=== PATIENT | female | born 1970 | race Caucasian/White ===

== ENCOUNTER 2021-06-22 07:17 | Outpatient (REF) | payer BC, SELFPAY ==
[2021-06-22 12:10] LABS: Appearance Urine CLEAR; Color Urine STRAW; Glucose Urine UA NEG (NEG); Leukocyte Esterase Urine NEG (NEG); Nitrite Urine NEG (NEG); Specific Gravity - Urine <= 1.005 (1.005-1.025); Urine Blood NEG (NEG); Urine Ketones NEG (NEG); Urine Protein NEG (NEG-TRACE)
[2021-06-22 12:22] LABS: MANUAL DIFF FLAG NO
[2021-06-22 12:36] LABS: Basophils Absolute Auto 0.1 X10*3/uL (0.0-0.2); Basophils Percent Auto 0.6 % (0-2); Eosinophils Absolute Auto 0.1 X10*3/uL (0.0-0.4); Eosinophils Percent Auto 1.2 % (0-4); Hematocrit 40.5 % (37-47); Hemoglobin 13.6 g/dl (12.0-16.0); Imm Gran Abs Auto 0.02 X10*3/uL (0.00-0.03); Imm Gran Pct Auto 0.2 % (0.0-0.4); Lymphocytes Absolute Auto 1.2 X10*3/uL (1.2-4.9); Lymphocytes Percent Auto 14.4 % (20-40); Mean Corpuscular HGB Conc 33.6 g/dl (31.0-35.0); Mean Corpuscular Hemoglobin 30.5 pg (27.0-33.0); Mean Corpuscular Volume 90.8 fL (80-98); Mean Platelet Volume 12.1 fL (9.4-12.3); Monocytes Absolute Auto 0.5 X10*3/uL (0.1-1.2); Monocytes Percent Auto 6.5 % (2-11); Neutrophils Absolute Auto 6.3 X10*3/uL (2.0-8.3); Neutrophils Percent Auto 77.1 % (45-73); Platelet Count 226 X10*3/uL (160-400); Red Blood Count 4.46 X10*6/uL (4.20-5.50); Red Cell Distribution Width 12.3 % (11.0-16.0); White Blood Count 8.1 X10*3/uL (4.8-10.8)
[2021-06-22 13:14] LABS: Alanine Aminotransferase 19 U/L (0-31); Albumin Level 4.5 g/dL (3.5-5.0); Alkaline Phosphatase 53 U/L (39-117); Anion Gap 13 (12-20); Aspartate Amino Transferase 16 U/L (5-31); Bilirubin Total 1.3 mg/dL (0.0-1.0); Blood Urea Nitrogen 13 mg/dL (9-16); Calcium 9.3 mg/dL (8.4-10.2); Carbon Dioxide 22 mmol/L (22-29); Chloride 104 mmol/L (96-108); Estimated Glomerular Filt Rate > 60; Glucose Random 104 mg/dL (60-115); Potassium 4.2 mmol/L (3.3-5.1); Sodium 135 mmol/L (135-145); Total Protein 6.9 g/dL (6.5-8.0)
[2021-06-22 13:46] LABS: CT PCR NOT DETECTED (Not Detect.); NG PCR NOT DETECTED (Not Detect.)
== END 2021-06-22 07:18 | disposition home or self-care (01) ==
LOC: HO.HMGCLDS 07:17
PROVIDERS: Visit Provider Family Medicine
DX: N93.8 Other specified abnormal uterine and vaginal bleeding (principal); Z79.899 Other long term (current) drug therapy
CPT/HCPCS: 80053; 81003; 85025; 87086; 87491; 87591

== ENCOUNTER 2022-05-06 06:59 | Outpatient (REF) | payer BC, SELFPAY ==
[2022-05-06 11:46] LABS: Basophils Absolute Auto 0.1 X10*3/uL (0.0-0.2); Basophils Percent Auto 1.2 % (0-2); Eosinophils Absolute Auto 1.2 X10*3/uL (0.0-0.4); Eosinophils Percent Auto 18.3 % (0-4); Hematocrit 36.5 % (37.0-47.0); Hemoglobin 12.3 g/dl (12.0-16.0); Imm Gran Abs Auto 0.01 X10*3/uL (0.00-0.03); Imm Gran Pct Auto 0.2 % (0.0-0.4); Lymphocytes Absolute Auto 1.1 X10*3/uL (1.2-4.9); Lymphocytes Percent Auto 17.8 % (20-40); Mean Corpuscular HGB Conc 33.7 g/dl (31.0-35.0); Mean Corpuscular Hemoglobin 30.5 pg (27.0-33.0); Mean Corpuscular Volume 90.6 fL (80.0-98.0); Mean Platelet Volume 11.2 fL (9.4-12.3); Monocytes Absolute Auto 0.5 X10*3/uL (0.1-1.2); Neutrophils Absolute Auto 3.6 x10*3/uL (2.0-8.3); Neutrophils Percent Auto 55.5 % (45-73); Platelet Count 205 X10*3/uL (160-400); Red Blood Count 4.03 X10*6/uL (4.20-5.50); Red Cell Distribution Width 12.5 % (11.0-16.0); White Blood Count 6.4 X10*3/uL (4.8-10.8)
[2022-05-06 11:52] LABS: MANUAL DIFF FLAG NO
[2022-05-06 12:13] LABS: Appearance Urine CLEAR; Color Urine STRAW; Glucose Urine UA NEG (NEG); Leukocyte Esterase Urine NEG (NEG); Nitrite Urine NEG (NEG); Specific Gravity - Urine <= 1.005 (1.005-1.025); Urine Blood NEG (NEG); Urine Ketones NEG (NEG); Urine Protein NEG (NEG-TRACE)
[2022-05-06 12:23] LABS: Alanine Aminotransferase 20 U/L (0-31); Albumin Level 4.5 g/dL (3.5-5.0); Alkaline Phosphatase 49 U/L (39-117); Anion Gap 14 (12-20); Aspartate Amino Transferase 19 U/L (5-31); Bilirubin Total 0.9 mg/dL (0.0-1.0); Blood Urea Nitrogen 9 mg/dL (9-16); Calcium 9.1 mg/dL (8.4-10.2); Carbon Dioxide 27 mmol/L (22-29); Chloride 102 mmol/L (96-108); Cholesterol 187 mg/dL; Estimated Glomerular Filt Rate > 60; Glucose Fasting 106 mg/dL (60-99); HDL Cholesterol 54 mg/dL; LDL Cholesterol Calculated 119 mg/dl; Potassium 3.9 mmol/L (3.3-5.1); Sodium 139 mmol/L (135-145); Total Protein 6.8 g/dL (6.5-8.0); Triglycerides 74 mg/dL
[2022-05-06 12:43] LABS: TSH reflex Free T4 0.84 uIU/mL (0.32-4.0)
[2022-05-08 04:51] LABS: DHEA Sulfate 141 mcg/dL (5-167); Follicle Stimulating Hormone 38.6 mIU/mL; Lutenizing Hormone 46.6 mIU/mL
[2022-05-09 21:21] LABS: Pregnenolone, LC/MS 123 ng/dL (22-237)
[2022-05-12 02:46] LABS: Dihydrotestosterone 13 ng/dL (< OR = 20)
[2022-05-14 19:31] LABS: Testosterone, Free 1.9 pg/mL (0.1-6.4); Testosterone, Total 28 ng/dL (2-45)
[2022-05-14 22:21] LABS: Estradiol Free 2.25 pg/mL; Estradiol, Ultrasensitive 156 pg/mL
[2022-05-16 18:31] LABS: Progesterone 1.1 ng/mL
== END 2022-05-06 07:00 | disposition home or self-care (01) ==
LOC: HO.HMGCLDS 06:59
PROVIDERS: Absent Provider Nurse Practitioner Family; PCP Nurse Practitioner Family; Visit Provider Nurse Practitioner Family
DX: Z00.00 Encounter for general adult medical examination without abnormal findings (principal); N95.8 Other specified menopausal and perimenopausal disorders
CPT/HCPCS: 36415; 80053; 80061; 81003; 82627; 82642; 82670; 82681; 83001; 83002; 84143; 84144; 84402; 84403; 84443; 85025

== ENCOUNTER → 2023-03-20 13:55 | Outpatient (REF) | payer OTHER, SELFPAY ==
--- NOTE | 2023-03-20 13:58 | CA_ITS ---
Transthoracic Echocardiogram Patient (Last, First, Middle): Veronica Tello, Gender: Female Date of : 1970 Age: 52 Procedure Date: 03/20/2023 Procedure Type: Transthoracic Echocardiogram Location: OP Height: 165.1 cm Weight: 70.31 kg BSA: 1.78 m2 Heart Rate: 83 bpm BP: 160 / 80 mmHg [employer]: NICO Chen MD: Terry Hargrove [facility] Sustainable Products Marketing Manager: Pollo Farrar MD Symptoms: R01.1 - Cardiac murmur, unspecified Study Quality: Good ECG Rhythm: Sinus Conclusions: - 1. Normal LV systolic function with LVEF of greater than 70% with normal filling pattern 2. Normal cardiac valvular Dopplers 3. Normal RV systolic pressure 4. No gross pericardial effusion Findings Left Ventricle Normal left ventricular size, thickness, and systolic function. The visually estimated ejection fraction is >70%. Spectral Doppler is indicative of a normal filling pattern. Peak GLS is -17.3%, which is borderline low. Right Ventricle Normal right ventricular cavity size and systolic function. Atria Both atria are normal in size. Interatrial shunt cannot be excluded. Aortic Valve The aortic valve structure and function is likely normal. There is no aortic valve stenosis. There is no aortic valve regurgitation. Mitral Valve Likely normal mitral valve structure and function. There is trace mitral valve regurgitation. There is no mitral valve stenosis. Pulmonic Valve The pulmonic valve was not well visualized. Tricuspid Valve Likely normal tricuspid valve structure and function. There is trace tricuspid valve regurgitation. The right ventricular systolic pressure is normal. The right ventricular systolic pressure is 16 mmHg. Normal right atrial pressure. There is no evidence of pulmonary hypertension. Great Vessels All visible segments of the aorta are normal in size. The pulmonary artery was not well visualized. Venous The inferior vena cava is normal in size and collapses greater than 50% with inspiration. Pericardium/Pleural There is no evidence of pericardial effusion. Prior Study Comparison No prior study available for comparison. Measurements 2D Linear Measurements IVSd: 0.98 0.6-0.9/0.6-1.0 cm LVIDd: 4.04 3.9-5.3/4.2-5.9 cm LVIDd Index: 2.27 2.4-3.2/2.2-3.1 cm/m2 LVIDs: 2.20 2.0-3.6 cm LVPWd: 0.86 0.7-1.1 cm LA Diam: 3.20 2.7-3.8/3.0-4.0 cm LAIDs Index: 1.80 1.5-2.3 cm/m2 LV Mass: 141.88 67-162/88-224 g LV Mass Index: 79.71 43-95/49-115 g/m2 LVOT Diam: 1.80 3.0+(-)1.3 cm 2D Systolic Function EF 4C: 73.50 >55% EF 2C: 71.80 >55% EF BiP: 72.50 >55% Mitral Valve MV Pk E: 0.89 MV PK A: 0.78 MV Decel Time: 209.00 E/A: 1.10 E'Lateral: 11.30 E'Medial: 7.62 E/E' Med: 11.70 E/E' Lat: 7.90 PHT: 61.00 MVA PHT: 3.61 Decel [place]: 4.26 Aortic Valve AoV Pk Estrada: 1.63 AoV Mn Estrada: 1.19 AoV VTI: 0.35 AoV Pk Grad: 11.00 Aov Mn Grad: 6.00 FIDENCIO Cont.VTI: 1.61 LVOT LVOT Pk Estrada: 1.06 LVOT Mn Estrada: 0.75 LVOT VTI: 0.23 LVOT Pk Grad: 4.00 LVOT Mn Grad: 2.00 LVOT Diam: 1.80 LVOT Area: 2.54 Diastolic Function MV Pk E: 0.89 MV Pk A: 0.78 E/A: 1.10 E'Medial: 7.62 E/E' Med: 11.70 E' Laterial: 11.30 E/E' Lat: 7.90 Right Ventricle TAPSE (mm): 24.00 TVS' Estrada: 16.30 Tricuspid Valve TR Pk Estrada: 1.82 TR Pk Grad: 13.00 RA Press: 3.00 RVSP: 16.00 Great Vessels Aorta Sinus of Valsalva: 3.10 2.0-3.5 cm Ao Asc: 2.70 2.1-3.4 cm Pulmonary Valve PV Pk Estrada: 1.02 Peak PV Grad: 4.00 Updated in Other Vendor System with Status of Final Pollo Farrar MD electronically signed on 03/20/2023 3:42:43 PM with status of Final
== END ==
LOC: HO.CARD 13:55
PROVIDERS: PCP Nurse Practitioner Family; Visit Provider Nurse Practitioner Family
DX: R01.1 Cardiac murmur, unspecified (principal)
CPT/HCPCS: 93306; 93356

== ENCOUNTER 2024-03-09 08:05 | Outpatient (AMB) | payer OTHER, SELFPAY ==
--- NOTE | 2024-03-09 08:11 | A.OFFPC_ITS ---
Vital Signs 03/09/24 08:15 Height 5 ft 5 in Weight 160 lb BMI 26.6 BP 138/86 Blood Pressure Location Lt brachial Position Sitting Pulse 99 Pulse Source Pulse Oximeter Pulse Oximetry (%) 99 Oxygen Delivery Method Room Air Intake Visit Reasons: PE Intake Note: pt is here for annual PE. Colonoscopy done in 2019. Mammogram 07/2023 at [facility].. Bone density not done Allergies No Known Allergies Allergy (Verified 03/09/24 08:32) Medication List - Last Reconciled 03/09/24 by ROQUE Mcrae No Known Home Meds Tobacco use date assessed: 03/09/24 Dental Screening Dental Screen Date: 03/09/24 Did you have a dental visit in the last 12 months?: Yes Did you have a dental problem in the last 6 months where you did not have access to dental care?: No Was dental information given to patient?: Patient has dentist HPI HPI Comments History of Present Illness Details This is a 53-year-old female who I am meeting for the 1st time in for physical exam. She is up-to-date with Tdap Patient is due for mammogram in 3 months. [facility], will make appointment. Patient has [employer], she is up-to-date with Pap smears. Patient is up-to-date with colonoscopy-goes through [facility]. Next colonoscopy in 5 months. Patient gets colonoscopies every 5 years due to family history. She has a past medical history significant for: Basal cell carcinoma-has establish care with [facility] most recent appointment 1 month prior to this. Psoriasis of left foot-controlled, sees [facility] for [facility]. Anemia-history of anemia due to heavy menstrual cycles. Patient has OBGYN is seeing them in 3 months. [facility] Medical History (Updated 03/09/24 @ 08:48 by ROQUE Mcrae) Basal cell carcinoma Surgical History No pertinent past surgical history Social History Housing: House Patient Tobacco Use Status: Never used Tobacco e-Cigarette/Vaping Use: Never Used service: No Current occupational status: employed Cognitive needs: No Hearing needs: No Vision needs: Yes Questionnaire PHQ-9 Over the last 2 weeks, how often have you been bothered by any of the following problems? 1. Little interest or pleasure in doing things: not at all 2. Feeling down, depressed, or hopeless: not at all 3. Trouble falling or staying asleep, or sleeping too much: not at all 4. Feeling tired or having little energy: not at all 5. Poor appetite or overeating: not at all 6. Feeling bad about yourself - or that you are a failure or have let yourself or your family down: not at all 7. Trouble concentrating on things, such as reading the newspaper or watching television: not at all 8. Moving or speaking so slowly that other people could have noticed. Or the opposite - being so fidgety or restless that you have been moving around a lot more than usual: not at all 9. Thoughts that you would be better off or of hurting yourself in some way: not at all Total score: 0 Depression Screening Interpretation: Negative Depression Screening Done: Yes 14959 - PHQ-9 Billing: Yes Source: Developed by Drs. Luis Hernandez, Blanca Ramires, Dixon Oconnell and colleagues, with an educational miko from [employer]. Thrive Questionnaire Date Thrive assessed: 02/26/23 I am a: Patient What is your living situation today?: I have a steady place to live Within the past 12 months, did the food you bought not last and you didn't have the money to get more?: Never true Within the past 12 months, did you worry whether your food would run out before you got money to buy more?: Never true Do you have trouble paying for medicines?: No Do you have trouble getting transportation to medical appointments?: No Do you have trouble paying your heating and electricity bill?: No Do you have trouble taking care of your child, family member or friend?: No Do you have trouble with day-to-day activities such as bathing, preparing meals, shopping, managing finances, etc.?: No Are you currently unemployed and looking for a job?: No Are you interested in more education?: No Please select the resources that you would like help with: None Currently or been in a relationship where the following occur: no concerns reported THRIVE Score: 0 AUDIT C Alcohol Use Questionnaire (AUDIT-C) 1. How often do you have a drink containing alcohol?: Never Total Score: 0 LIVIA-7 AMB Questionnaire LIVIA-7 Date LIVIA - 7 assessed: 02/26/23 Feeling nervous, anxious, or on edge: 1 = Several days Not being able to stop or control worryin = Several days Worrying too much about different things: 1 = Several days Trouble relaxin = Not at all Being so restless that it is hard to sit still: 0 = Not at all Becoming easily annoyed or irritable: 0 = Not at all Feeling afraid as if something awful might happen: 0 = Not at all Total LIVIA-7 score (0-4 normal; 5-9 mild; 10-14 moderate; 15-21 severe): 3 Source: Developed by Drs. Luis Hernandez, Blanca Ramires, Dixon Oconnell and colleagues, with an educational miko from [employer]. LIVIA-7 Assessment Billing LIVIA-7 Assessment Tool: LIVIA-7 Assessment 13982 Review of Systems Const All systems reviewed & are unremarkable except as noted in HPI and below Physical exam (Primary Care) Care Plan Goal for BP management: Blood pressure is controlled. Tobacco/Smoking Status: Tobacco use Status Tobacco use date assessed 02/26/23 03/09/24 08:11 Patient Tobacco Use Status Never used Tobacco 03/09/24 08:11 e-Cigarette/Vaping Use Never Used 03/09/24 08:11 Depression Screening Interpretation: Negative Thrive Assessment: Date of Thrive Assessment Date Thrive assessed 02/26/23 03/09/24 08:11 Currently or been in a relationship where the following occur: no concerns reported Const Other: Appearance: Alert.? Oriented X3.? No acute distress.? Head: Normocephalic. Eyes: Pupils equal, round and reactive to light.?Sclera white. ENT: Pharynx normal.?TM intact and pearly ba. Neck: Normal inspection.? Neck supple.? CVS: Normal heart rate and rhythm.? Pulses normal.?+systolic murmur. Respiratory: No respiratory distress.? Breath sounds normal.? Abdomen: Soft and nontender.? Skin: Skin warm and dry.? Normal skin color.? Normal skin turgor.? Extremities: No lower extremity edema.? No calf ttp. 5/5 strength to bilateral upper and lower extremities Back: No midline tenderness, no C-spine tenderness, full range of motion, no CVA tenderness bilaterally Neuro: Oriented X 3.? No motor deficit.? No sensory deficit. CN 2-12 intact Assessment and Plan Assessment & Plan (1) Physical exam: Comment: She is up-to-date with Tdap Patient is due for mammogram in 3 months. Patient gets sister Angela [facility], will make appointment. Patient has [employer], she is up-to-date with Pap smears. Patient is up-to-date with colonoscopy-goes through [facility]. Next colonoscopy in 5 months. Patient gets colonoscopies every 5 years due to family history. She has a past medical history significant for: Basal cell carcinoma-has establish care with [facility] most recent appointment 1 month prior to this. Psoriasis of left foot-controlled, sees [facility] for [facility]. Anemia-history of anemia due to heavy menstrual cycles. Patient has OBGYN is seeing them in 3 months. Code(s): Z00.00 - Encounter for general adult medical examination without abnormal findings (2) Elevated fasting glucose: Comment: Will draw A1c. Code(s): R73.01 - Impaired fasting glucose (3) Iron deficiency: Comment: Will draw CBC and iron profile Code(s): E61.1 - Iron deficiency Plan: Draw labs. Fasting. Plan Schedule physical exam 1 month. Will follow-up with lab results. Orders: Orders Vitamin D 25-OH (D2 and D3) Today Z13.21 - Encounter for screening for nutritional disorder Vitamin B6 Today Z13.21 - Encounter for screening for nutritional disorder Vitamin B12 Today Z13.21 - Encounter for screening for nutritional disorder UA CC w/rflx Micro + Cult Today Z13.89 - Encounter for screening for other disorder TSH reflex Free T4 Today Z13.29 - Encounter for screening for other suspected endocrine disorder Lipid Panel Today Z13.220 - Encounter for screening for lipoid disorders Complete Blood Count Auto Diff Today Z13.0 - Encounter for screening for diseases of the blood and blood-forming organs and certain disorders involving the immune mechanism Comprehensive Met. Panel Today Z91.89 - Other specified personal risk factors, not elsewhere classified Hemoglobin A1c Today Z13.1 - Encounter for screening for diabetes mellitus IRON PROFILE Today Z13.0 - Encounter for screening for diseases of the blood and blood-forming organs and certain disorders involving the immune mechanism Coding Level of Care Code Est Pt Prev Care 40-64y(59227) Diagnoses Physical exam Z00.00 Elevated fasting glucose R73.01 Iron deficiency E61.1 Additional Codes LIVIA-7 Assessment Billing - LIVIA-7 Assessment Tool: LIVIA-7 Assessment 77949 ([id number]) Time Spent (min) 32
[2024-03-09 08:15] VITALS: BP 138/86; PULSE 99; O2SAT 99; BMI 26.6
== END 2024-03-09 08:47 | disposition home or self-care (01) ==
PROVIDERS: PCP Nurse Practitioner Family; Visit Provider Nurse Practitioner Primary Care
DX: Z00.00 Encounter for general adult medical examination without abnormal findings (principal); R73.01 Impaired fasting glucose; E61.1 Iron deficiency
CPT/HCPCS: 99396

== ENCOUNTER 2025-07-05 10:27 | Outpatient (REF) | payer BC, SELFPAY ==
--- OUTSIDE RECORDS SUMMARY | 2025-07-05 12:19 | XMS_ITS | Clinical Summary ---
Author Organization [facility] Address [address] [place] [address] Phone Care Team Providers Care Load Mixer Name Role Phone Terry Hargrove NP Primary Care Provider [phone] Social History Tobacco Use Types Packs/Day Years Used Date Smoking Tobacco: Never Assessed Comments No Sex and Gender Information Value Date Recorded Sex Assigned at Not on file Legal Sex Female 7:01 PM EST Gender Identity Not on file Sexual Orientation Not on file Obstetrics History Para Term AB IAB SAB Ectopic Multiple Livin g Live Births 2 Last Filed Vital Signs Vital Sign Reading Time Taken Comments Blood Pressure - - Pulse - - Temperature - - Respiratory Rate - - Oxygen Saturation - - Inhaled Oxygen Concentration - - Weight 72.6 kg (160 lb) 07/30/2024 7:14 AM EST Height 165.1 cm (5' 5 ) 07/30/2024 7:14 AM EST Body Mass Index 26.63 07/30/2024 7:14 AM EST Plan of Treatment Health Maintenance Due Date Last Done Comments Colorectal Cancer Screening: Colonoscopy 1970 DTaP,Tdap,and Td Vaccines (1 - Tdap) 1988 Hepatitis B Vaccines (1 of 3 - 19+ 3-dose series) 1988 Cervical Cancer Screening: Pap Smear 1990 Pneumococcal Vaccine: 50+ Years (1 of 1 - PCV) 2019 Zoster Vaccines (1 of 2) 2019 HIV Screening 08/24/2022 Hepatitis C Screening 08/24/2022 Social Influencers of Health Screening 08/24/2022 Depression Screening 09/22/2024 COVID-19 Vaccine ( season) 2025 10/05/2021, 03/20/2021, 02/26/2021 Influenza Vaccine (#1) 2025 Breast Cancer Screening 07/30/2026 07/30/20 24, 07/23/2023, 04/25/2022, Additional history exists RSV Immunization Adult Patients (1 - 1-dose 75+ series) 2044 HIB Vaccines Aged Out No longer eligi ble based on patient's age to complete this topic HPV Vaccines Aged Out No longer eligi ble based on patient's age to complete this topic Hepatitis A Vaccines Aged Out No long er eligible based on patient's age to complete this topic IPV Vaccines Aged Out No longer eligi ble based on patient's age to complete this topic MMR Vaccines Aged Out No longer eligi ble based on patient's age to complete this topic Meningococcal ACWY Vaccine Aged Out N o longer eligible based on patient's age to complete this topic Meningococcal B Vaccine Aged Out No l onger eligible based on patient's age to complete this topic RSV Immunization Patients Under 20 months Aged Out No longer eligible based on patient's age to complete this topic Varicella Vaccines Aged Out No longer eligible based on patient's age to complete this topic Procedures Procedure Name Priority Date/Time Associated Diagnosis Comments MG MAMMO DIGITAL SCREENING W ALEJANDRO BILAT Routine 07/30/2024 7:25 AM EST Encounter for screening mammogram for breast cancer from Last 3 Months or Most Recently Relevant to Health Maintenance Results * MG Mammo Digital Screening w Alejandro bilat (07/30/2024 7:25 AM EST) Anatomical Region Laterality Modality Breast Bilateral Mammography 07/30/2024 8:26 AM EST Impressions 07/30/2024 8:32 AM EST No mammographic evidence of malignancy. No suspicious interval change. A negative mammogram in the presence of a clinically suspicious palpable abnormality does not preclude the possibility of malignancy or alter the indications for biopsy. ASSESSMENT: BI-RADS 1: NEGATIVE RECOMMENDATION(S): 1: Routine screening mammogram BILATERAL in 1 year. -------- FINAL REPORT -------- Dictated By: Wing Chung Dictated Date: 07/30/2024 08:26 ET Assigned Physician: Wing Chung Reviewed and Electronically Signed By: Wing Chung Signed Date: 07/30/2024 08:32 ET Workstation ID: [id number] Transcribed By: Self Edit Transcribed Date: 07/30/2024 08:26 ET Narrative 07/30/2024 8:32 AM EST EXAM: SCREENING MAMMOGRAPHY, BILATERAL HISTORY: SCREENING. No additional history. COMPARISON: 07/23/2023, 04/25/2022, 02/22/2021 TECHNIQUE: Synthesized CC and MLO projections of each breast. Tomosynthesis of each breast in the CC and MLO projections. ADDITIONAL IMAGING: None Computer-aided detection was employed with the Spot [employer] AI 3-D. TISSUE DENSITY: There are scattered areas of fibroglandular density. (BI-RADS category B) FINDINGS: RIGHT BREAST: No suspicious mass. No suspicious calcification. No distortion. No additional suspicious right breast findings LEFT BREAST: No suspicious mass. No suspicious calcification. No distortion. No additional suspicious left breast findings Procedure Note Wing Chung MD - 07/30/2024 EXAM: SCREENING MAMMOGRAPHY, BILATERAL HISTORY: SCREENING. No additional history. COMPARISON: 07/23/2023, 04/25/2022, 02/22/2021 TECHNIQUE: Synthesized CC and MLO projections of each breast.Tomosynthesis of each breast in the CC and MLO projections. ADDITIONAL IMAGING: None Computer-aided detection was employed with the Spot formerly [employer] AI 3-D. TISSUE DENSITY: There are scattered areas of fibroglandular density.(BI-RADS category B) FINDINGS: RIGHT BREAST: No suspicious mass. No suspicious calcification. No distortion. Noadditional suspicious right breast findings LEFT BREAST: No suspicious mass. No suspicious calcification. No distortion. Noadditional suspicious left breast findings IMPRESSION: No mammographic evidence of malignancy. No suspicious interval change. A negative mammogram in the presence of a clinically suspicious palpableabnormality does not preclude the possibility of malignancy or alter theindications for biopsy. ASSESSMENT: BI-RADS 1: NEGATIVE RECOMMENDATION(S): 1: Routine screening mammogram BILATERAL in 1 year. -------- FINAL REPORT -------- Dictated By: Wing Chung Dictated Date: 07/30/2024 08:26 ET Assigned Physician: Wing Chung Reviewed and Electronically Signed By: Wing Chung Signed Date: 07/30/2024 08:32 ET Workstation ID: [id number] Transcribed By: Self Edit Transcribed Date: 07/30/2024 08:26 ET Terry Hargrove NP IMG BI PROCEDURES Final Resu lt from Last 3 Months or Most Recently Relevant to Health Maintenance Insurance [employer] Care Teams Load Mixer Relationship Specialty Start Date End Date Terry Hargrove NP [address] [place], [place] PCP - General Family Medicine 07/11/24
[2025-07-05 12:57] LABS: MANUAL DIFF FLAG NO
[2025-07-05 13:16] LABS: Appearance Urine Clear; Glucose Urine UA Negative (Negative); PH 7.5 (5.0-9.0); Specific Gravity - Urine <= 1.005 (1.005-1.025)
[2025-07-05 13:22] LABS: Hematocrit 40.0 % (37.0-47.0); Hemoglobin 13.8 g/dl (12.0-16.0); Imm Gran Abs Auto 0.01 X10*3/uL (0.00-0.03); Imm Gran Pct Auto 0.2 % (0.0-0.4); Lymphocytes Absolute Auto 1.7 X10*3/uL (1.2-4.9); Mean Corpuscular HGB Conc 34.5 g/dl (31.0-35.0); Mean Corpuscular Hemoglobin 30.3 pg (27.0-33.0); Mean Corpuscular Volume 87.9 fL (80.0-98.0); NRBC Abs Auto 0.000 X10*3/uL (0.0-0.012); NRBC Pct Auto 0.0 /100WBC (0.0-0.2); Platelet Count 235 X10*3/uL (160-400); Red Blood Count 4.55 X10*6/uL (4.20-5.50); White Blood Count 6.1 X10*3/uL (4.8-10.8)
[2025-07-05 14:01] LABS: Alanine Aminotransferase 32 U/L (0-31); Albumin Level 5.0 g/dL (3.5-5.0); Alkaline Phosphatase 73 U/L (39-117); Anion Gap 11 (12-20); Aspartate Amino Transferase 30 U/L (5-31); Blood Urea Nitrogen 12 mg/dL (9-16); Calcium 9.6 mg/dL (8.4-10.2); Carbon Dioxide 29 mmol/L (22-29); Chloride 104 mmol/L (96-108); Cholesterol 231 mg/dL (<200); Estimated Glomerular Filt Rate > 60; HDL Cholesterol 41 mg/dL (>40); Potassium 4.3 mmol/L (3.3-5.1); Sodium 140 mmol/L (135-145); Total Protein 7.4 g/dL (6.5-8.0); Triglycerides 163 mg/dL (<150)
[2025-07-11 15:48] LABS: Vitamin D 25-OH, D2 <4 ng/mL; Vitamin D 25-OH, D3 29 ng/mL; Vitamin D 25-OH, Total 29 ng/mL (30-100)
== END 2025-07-05 10:28 | disposition home or self-care (01) ==
LOC: HO.HMGCLDS 10:27
PROVIDERS: PCP Nurse Practitioner Family; Visit Provider Nurse Practitioner Family
DX: Z00.00 Encounter for general adult medical examination without abnormal findings (principal); E55.9 Vitamin D deficiency, unspecified; Z13.6 Encounter for screening for cardiovascular disorders; Z13.29 Encounter for screening for other suspected endocrine disorder
CPT/HCPCS: 36415; 80053; 80061; 81003; 82306; 84443; 85025

== ENCOUNTER 2025-07-12 06:56 | Outpatient (AMB) | payer BC, SELFPAY ==
--- NOTE | 2025-07-12 07:29 | A.OFFPC_ITS ---
Intake Visit Reasons: Referral to GI and mammo Allergies No Known Allergies Allergy (Verified 03/09/24 08:32) Tobacco use date assessed: 03/09/24 Dental Screening Dental Screen Date: 03/09/24 HPI Referral to GI and mammo HPI Details History of Present Illness The patient is a 55-year-old female presenting for a follow-up telehealth visit to discuss recent laboratory results and preventative care referrals. The patient reports elevated cholesterol, triglycerides, and LDL levels from recent laboratory tests. She acknowledges poor dietary habits as a contributing factor and expresses hesitancy to start medication at this time. Instead, she plans to improve her diet and repeat the cholesterol tests in two months. Additionally, the patient requires referrals for a mammogram and a repeat colonoscopy, which have been arranged. She denies experiencing any chest pain, shortness of breath, abdominal pain, blood in stool, constipation, diarrhea, headaches, or blurred vision. Review of Systems - Cardiovascular: Denies chest pain or s hortness of breath - Gastrointestinal: Denies abdominal mitchell n, blood in stool, constipation, or diarrhea - Neurological: Denies headaches or blur red vision Plan 1. Hyperlipidemia The patient has elevated cholesterol, triglycerides, and LDL levels. She plans t o modify her diet and will have her cholesterol levels rechecked in two months. 2. Preventative Care: Mammogram A referral for a mammogram has been provided to the patient. 3. Preventative Care: Colonoscopy A referral for a repeat colonoscopy has been provided to the patient. Discussion Notes During the visit, I discussed the patient's elevated cholesterol levels and the importance of dietary modifications. We agreed to re-evaluate her cholesterol levels in two months. I also provided referrals for a mammogram and a repeat colonoscopy as part of her preventative care. Patient Instructions - Follow a healthy diet to help lower ch olesterol levels. - Schedule and complete the mammogram an d colonoscopy as referred. - Return for a follow-up visit in two mo [facility] to recheck cholesterol levels. [facility] Medical History Basal cell carcinoma Surgical History No pertinent past surgical history Social History Housing: House Patient Tobacco Use Status: Never used Tobacco e-Cigarette/Vaping Use: Never Used service: No Current occupational status: employed Cognitive needs: No Hearing needs: No Vision needs: Yes Questionnaire Thrive Questionnaire Date Thrive assessed: 07/05/25 I am a: Patient What is your living situation today?: I have a steady place to live Within the past 12 months, did the food you bought not last and you didn't have the money to get more?: Never true Within the past 12 months, did you worry whether your food would run out before you got money to buy more?: Never true Do you have trouble paying for medicines?: No Do you have trouble getting transportation to medical appointments?: No Do you have trouble paying your heating and electricity bill?: No Do you have trouble taking care of your child, family member or friend?: No Do you have trouble with day-to-day activities such as bathing, preparing meals, shopping, managing finances, etc.?: No Are you currently unemployed and looking for a job?: No Are you interested in more education?: No Please select the resources that you would like help with: None Currently or been in a relationship where the following occur: No concerns reported THRIVE Score: 0 LIVIA-7 AMB Questionnaire LIVIA-7 Date LIVIA - 7 assessed: 02/26/23 Source: Developed by Drs. Luis Hernandez, Blanca Ramires, Dixon Oconnell and colleagues, with an educational miko from [employer]. Physical exam (Primary Care) Tobacco/Smoking Status: Tobacco use Status Tobacco use date assessed 03/09/24 03/01/25 10:35 Patient Tobacco Use Status Never used Tobacco 03/01/25 10:35 e-Cigarette/Vaping Use Never Used 03/01/25 10:35 Thrive Assessment: Date of Thrive Assessment Date Thrive assessed 07/05/25 07/05/25 06:53 Currently or been in a relationship where the following occur: No concerns reported Telehealth Telehealth Telehealth Platform: [facility] Location of provider rendering services: practice address Location of patient: address on file Patient Identification confirmed using: Name, : Yes Telehealth method: video Patient verbally consented to treatment: Yes Patient verbally consented to billing insurance company: Yes Patient informed of any privacy concerns related to visit: Yes Minutes spent on Phone/Video with Pt.: 13 Coding Level of Care Code Tele Est Pt Level 3 (48899) Diagnoses Dyslipidemia E78.5 Screening for breast cancer Z12.39 Screening for colon cancer Z12.11 Assessment & Plan Assessment & Plan (1) Dyslipidemia: Code(s): E78.5 - Hyperlipidemia, unspecified Category: Medical (2) Screening for breast cancer: Code(s): Z12.39 - Encounter for other screening for malignant neoplasm of breast Category: Medical (3) Screening for colon cancer: Code(s): Z12.11 - Encounter for screening for malignant neoplasm of colon Category: Medical Plan . Orders: Orders Lipid Panel 2 Months E78.5 - Hyperlipidemia, unspecified MM screening mammo BI Today Z12.31 - Encounter for screening mammogram for malignant neoplasm of breast, Z12.39 - Encounter for other screening for malignant neoplasm of breast [facility] [place]. Panel Fast 2 Months E78.5 - Hyperlipidemia, unspecified Referrals Gastroenterology Referral Z12.11 - Encounter for screening for malignant neoplasm of colon
== END 2025-07-12 10:18 | disposition home or self-care (01) ==
LOC: HO.HMCC 06:57
PROVIDERS: PCP Nurse Practitioner Family; Visit Provider Nurse Practitioner Family
DX: E78.5 Hyperlipidemia, unspecified (principal); Z12.39 Encounter for other screening for malignant neoplasm of breast; Z12.11 Encounter for screening for malignant neoplasm of colon